=== PATIENT | female | born 1970 | race Caucasian/White ===

== ENCOUNTER 2025-06-06 09:11 | Outpatient (AMB) | payer MEDICAID, SELFPAY ==
--- NOTE | 2025-06-06 09:20 | A.OFFVIS_ITS ---
Intake Visit Reasons: 6 months Allergies cephalexin (From Keflex) Allergy (Unknown, Verified 06/06/25 09:24) Unknown Medication List - Last Reconciled 06/06/25 by Katrina James CNP acetaminophen 325 mg PO QID PRN gabapentin 800 mg PO TID HPI Comments Details: She was doing okay. Fibromyalgia pains controlled with gabapentin, able to function and get through day. Occasional flare ups are not as frequent or severe. Last flare up was about 3-5 weeks ago and lasted half the day, triggered by weather. FM pain worse with weather changes, stress, and viral illness. No falls. Using wrist splints as needed if hand or wrists act up, has been okay recently. Sleep was okay. Mood was okay. Previously, had one episode with esophageal spasms for 48 hrs on eating she would get pain and not otherwise along with other symptoms that are more typical of her FM exacerbations. She had a sudden onset whole body pain. One morning in April 2018 she woke up and her whole body felt sore described as muscle aches and muscle soreness but no fever. She felt fatigued. Intense pain lasted 2 days and then slowly abated over the next several weeks with some fatigue continuing. Since then, she's had 2 more episodes of transient worsening of her symptoms, lasting for a day. She still feels tired and has headaches. She has a history of anxiety disorder. [facility] Medical History (Updated 06/06/25 @ 09:22 by Katrina James CNP) Tachycardia Carpal tunnel syndrome on both sides Carpal tunnel syndrome of right wrist Anxiety Fibromyalgia Review of Systems Const Denies chills, Denies daytime sleepiness, Denies difficulty sleeping, Denies fatigue, Denies fever(s), Denies frequent falls, Reports headache(s), Denies increased appetite, Denies poor appetite, Denies snoring, Denies weakness, Denies weight gain and Denies weight loss Eyes Denies loss of vision ENT Denies vertigo, Reports dizziness, Reports headache(s) and Denies neck pain Card Denies chest pain at rest, Denies chest pain with activity, Denies syncope, Denies leg edema, Denies palpitations, Denies dyspnea and Denies dyspnea on exertion Resp Denies cough, Denies dyspnea, Denies dyspnea on exertion and Denies snoring GI Denies abdominal pain, Denies constipation, Denies heartburn, Denies diarrhea and Denies nausea Denies urinary frequency, Denies urinary incontinence and Denies urinary urgency Musc Denies abnormal gait, Denies back pain, Denies myalgias, Denies arthralgias, Denies neck pain, Reports numbness and Reports tingling Neuro Denies abnormal gait, Denies vertigo, Reports dizziness, Denies syncope, Denies frequent falls, Reports headache(s), Denies lack of coordination, Denies loss of vision, Denies memory loss, Reports numbness, Denies Other visual disturbances, Denies restless legs, Denies seizure-like activity, Reports tingling, Denies paresthesias, Denies tremor(s) and Denies weakness Psych Reports anxiety, Denies depression, Denies auditory hallucinations, Denies memory loss and Denies visual hallucinations Endo Denies fatigue and Denies palpitations Physical Exam Const Other: General Appearance:? normal, in no acute distress. Heart:? S1, S2 normal, no murmurs. Lungs:? clear anteriorly and posteriorly. Musculoskeletal:? normal. Extremities:? no edema. Psych:? alert, oriented, cognitive function intact, cooperative with exam. Neuro Other: Abnormal Neurological Findings:?none.? Mental Status: alert and oriented X 3. Normal attention, orientation, memory, and affect. Cranial Nerves: Pupils are equal, round, and reactive to light. External ocular muscles are intact. Visual colon are full, no ptosis. Face is symmetrical, no facial weakness or droop. Facial sensations are normal. Tongue protrudes in midline. Palate elevates symmetrically. Shoulder shrugging is normal Motor Examination: Normal muscle tone, bulk and strength. No atrophy or fasciculations. No drift of the extended upper extremities. DTR 2+. Plantars are flexor. Straight Leg Raisin degrees. Sensory Exam: Normal light touch, temperature, pinprick, vibration, and joint- position sensations. Rhomberg sign is absent. Coordination: No ataxia. No titubation. Cioeyu-op-wwnd, vvdb-rcrb-vcpv test, and rapid alternating movements were normal. Gait Exam: Within normal limits. Cerebellar Signs: Phrimu-qo-ybwp and oosb-pu-glmz is normal. No dysdiadochokinesia. Extrapyramidal System: No tremor, rigidity with normal facial expressions. No bradykinesia. No bradyphrenia. Normal arm swing and posture. No propulsion or retropulsion. Speech: Normal. No dysphasia or dysarthria. Assessment & Plan Assessment & Plan (1) Fibromyalgia: Code(s): M79.7 - Fibromyalgia Category: Medical Plan: Continue gabapentin 400mg 2 capsules three times a day. May consider reducing dose at next appointment if FM remains stable. (2) Carpal tunnel syndrome on both sides: Code(s): G56.03 - Carpal tunnel syndrome, bilateral upper limbs Category: Medical Plan: Continue to use wrist splints as needed. (3) Anxiety: Code(s): F41.9 - Anxiety disorder, unspecified Category: Medical Plan: . Plan . Medications: New gabapentin 800 mg (2 x 400 mg) PO TID 540 caps 1RF 90 days Discontinued gabapentin Discontinued Reason: Order 800 mg PO TID Coding Level of Care Code Est Pt Level 3 (55091) Diagnoses Fibromyalgia M79.7 Carpal tunnel syndrome on both sides G56.03 Anxiety F41.9
--- OUTSIDE RECORDS SUMMARY | 2025-06-06 09:35 | XMS_ITS | Clinical Summary ---
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 10 each 12/21/2024 Active Medical History Medical History Date Comments Fibromyalgia Sleep apnea Social History Tobacco Use Types Packs/Day Years Used Date Smoking Tobacco: Never Assessed Comments Unknown Sex and Gender Information Value Date Recorded Sex Assigned at Female 12/21/2024 3:58 PM EST Legal Sex Female 1:53 PM EST Gender Identity Female 12/21/2024 3:58 PM EST Sexual Orientation Straight 12/21/2024 3: 58 PM EST Obstetrics History Last Filed Vital Signs Vital Sign Reading Time Taken Comments Blood Pressure 144/75 12/21/2024 2:28 PM EST Pulse 85 12/21/2024 2:28 PM EST Temperature 36.8 C (98.3 F) 12/21/2024 2:28 PM EST Respiratory Rate 16 12/21/2024 2:28 PM EST Oxygen Saturation 99% 12/21/2024 2:28 PM EST Inhaled Oxygen Concentration - - Weight 109 kg (240 lb) 12/21/2024 2:28 PM EST Height 165.1 cm (5' 5 ) 12/21/2024 2:28 PM EST Body Mass Index 39.94 12/21/2024 2:28 PM EST Plan of Treatment Health Maintenance Due Date Last Done Comments Breast Cancer Screening 1971 Cervical Cancer Screening: Pap Smear 1992 Hepatitis B Vaccines (3 of 3 - 19+ 3-dose series) 08/02/2010 06/07/2010, 12/07/2009 Pneumococcal Vaccine: 50+ Years (1 of 1 - PCV) 2021 Zoster Vaccines (1 of 2) 2021 COVID-19 Vaccine (4 - season) 2024 10/29/2023, 01/25/2021, 12/28/2020 DTaP,Tdap,and Td Vaccines (2 - Td or Tdap) 12/11/2024 12/11/2014 Colorectal Cancer Screening: Colonoscopy 12/21/2024 Depression Screening 12/21/2024 HIV Screening 12/21/2024 Social Influencers of Health Screening 12/21/2024 Influenza Vaccine (#1) 2025 , 08/29/2022, 10/19/2021, Additional history exists Cholesterol Screening (Lipid Panel) 06/21/2029 06/21/2024 MMR Vaccines Aged Out 06/07/2020, 12/07/2009 No lo nger eligible based on patient's age to complete this topic Hepatitis C Screening Completed 06/11/2021 HIB Vaccines Aged Out No longer eligi ble based on patient's age to complete this topic HPV Vaccines Aged Out No longer eligi ble based on patient's age to complete this topic Hepatitis A Vaccines Aged Out No long er eligible based on patient's age to complete this topic IPV Vaccines Aged Out No longer eligi ble based on patient's age to complete this topic Meningococcal ACWY Vaccine Aged Out N o longer eligible based on patient's age to complete this topic Meningococcal B Vaccine Aged Out No l onger eligible based on patient's age to complete this topic RSV Immunization Patients Under 20 months Aged Out No longer eligible based on patient's age to complete this topic Varicella Vaccines Aged Out No longer eligible based on patient's age to complete this topic Insurance [place] Care Teams Taping Machine Operator Relationship Specialty Start Date End Date Jeferson Gunderson MD [address] [place] [id number] PCP - General Internal Medicine 12/21/24
== END 2025-06-06 09:40 | disposition home or self-care (01) ==
LOC: HO.HSM 09:12
PROVIDERS: PCP Internal Medicine; Referring Provider Internal Medicine; Visit Provider Registered Nurse
DX: M79.7 Fibromyalgia (principal); G56.03 Carpal tunnel syndrome, bilateral upper limbs; F41.9 Anxiety disorder, unspecified
CPT/HCPCS: 99213

== ENCOUNTER → 2025-06-06 09:11 | Outpatient (BNVA) | payer MEDICAID, SELFPAY | PROVIDERS: PCP Internal Medicine; Referring Provider Internal Medicine; Visit Provider Registered Nurse | DX: M79.7 Fibromyalgia (principal); G56.03 Carpal tunnel syndrome, bilateral upper limbs; F41.9 Anxiety disorder, unspecified | CPT/HCPCS: 99212 ==